=== PATIENT | female | born 1990 | race Caucasian/White ===

== ENCOUNTER 2017-09-23 01:13 | Inpatient (IN) | payer OTHER ==
[2017-09-23] VITALS (34 sets, daily range): BP systolic 91–141; BP diastolic 25–90; PULSE 68–146; RESP 16–20; TEMP 97.8–98.3
[~2017-09-23] VITALS: Ht 149.9 cm; Wt 88.0 kg
[~2017-09-23 01:13] MED LIST: AMOX875T2 PO; OXYC1SOL5 PO
--- NOTE | 2017-09-23 01:52 | PD ---
HPI Chief Complaint Contractions Travel History International Travel<30 Days: No Contact w/Intl Traveler<30Days: No Known Affected Area: No History of Present Illness HPI 26-year-old 002, IUP at 39.5 care uncomplicated per patient report The patient presents complaining of the onset of painful contractions at 10 PM last night. She reports they have increased in intensity and frequency and are now every 3-5 minutes. There are no alleviating factors; however, the patient reports they are worse with standing and somewhat better at rest. She denies any vaginal bleeding or leaking fluid. She reports that she has had some mucus discharge. She reports good movement. She has no other obstetrical complaints today. Weeks Gestation: 39 Para: 2 : 3 History Past Medical History Medical History: Denies Significant Hx Obstetric History Obstetric History 002 2 Past Surgical History Narrative Surgical Finger surgery, cervical laceration repair after delivery Social History Alcohol Use: No Tobacco Use: No Substance Abuse: No Allergies-Medications (Allergen,Severity, Reaction): Coded Allergies: No Known Allergies (Unverified , 10/17/14) Home Meds Active Scripts Oxycodone W/ Acetaminophen (Oxycodone/Acetaminophen 5-325 mg/5Ml) 1 Tab Tab, 1 TAB PO Q6H Y for pain, #15 TAB 0 Refills Prov:Joe Gibbons DO 10/20/14 Amoxicillin & Pot Clavulanate (Amoxicillin/Potassium Cla) 875 Mg Tab, 875 MG PO Q12HR for dig bite hand infection for 10 Days, TAB Prov:Marium Linton 10/20/14 Review of Systems Except as stated in HPI: all other systems reviewed are Neg Physical Exam Narrative GENERAL: Well-nourished, well-developed patient. SKIN: Warm and dry. HEAD: Normocephalic and atraumatic. EYES: No scleral icterus. No injection or drainage. ENT: No nasal drainage noted. Mucous membranes pink. Airway patent. NECK: Supple, trachea midline. No JVD. CARDIOVASCULAR: Regular rate and rhythm without murmurs, gallops, or rubs. RESPIRATORY: Breath sounds equal bilaterally. No accessory muscle use. BREASTS: Deferred ABDOMEN/GI: Abdomen soft, non-tender, bowel sounds present, no rebound, no guarding Gravid GENITOURINARY: External Genitalia: intact and normal in appearance. Normal BUS. Physiologic discharge. Grossly normal rugated. No cervical or vaginal masses. SVE 3/60/-2 by RN. SVE changed to 4/80/-1 with bulging bag of water FHT's: heart tones are in the 120s with moderate long-term variability, good accelerations. This category 1 heart rate tracing reactive NST EXTREMITIES: No cyanosis or edema. BACK: Nontender without obvious deformity. NEUROLOGICAL/musculoskeletal: Awake and alert. Motor and sensory grossly within normal limits. Grossly normal muscle strength in all muscle groups. Normal speech. Mostly normal gait and range of motion. Psychiatric: Grossly normal memory and affect MDM Plan Assessment/plan: 1. IUP at 39.5 2. Labor: patient presented with contractions at term and has made cervical change from 3/60 to 4/80 and now with a bulging bag of water. Will admit to Dr. Jane. Orders placed for labor and delivery admission. Discussed in brief the risks of vaginal delivery as well as the risks and indications of a delivery. Expectant management for now. 3. well-being: Reassuring testing with reactive NST and category 1 heart rate tracing 4. GBS negative Denise Bravo MD Sep 23, 2017 01:52
[2017-09-23] MEDS ORDERED: LACTATED RINGER'S 1000 ML INJ 1,000 ML IV SCH (02:37)
[2017-09-23] MEDS ORDERED: LACTATED RINGER'S 1000 ML INJ 1,000 ML IV PRN (02:37)
[2017-09-23] MEDS ORDERED: CITRIC ACID-SODIUM CITRATE LIQ 30 ML UDC PO SCH (02:45)
[2017-09-23] MEDS ORDERED: SODIUM CHLORID 0.9% 500 ML INJ 500 ML IV PRN (02:45)
[2017-09-23] MEDS ORDERED: LIDOCAINE HCL 1% 50 ML VIAL INFIL PRN (02:45)
[2017-09-23] MEDS ORDERED: LIDOCAINE HCL 1% 50 ML VIAL I-DERMAL PRN (02:45)
[2017-09-23] MEDS ORDERED: MINERAL OIL 10 ML VIAL TOPICAL PRN (02:45)
[2017-09-23] MEDS ORDERED: OXYTOCIN 30 UNITS-500ML PREMIX 500 ML IV ONE ×2 (02:45→07:00)
[2017-09-23] MEDS ORDERED: ONDANSETRON ODT 4 MG TAB PO PRN ×2 (02:45→07:00)
[2017-09-23] MEDS ORDERED: PRENTAB7 PO (02:49)
[2017-09-23] MEDS ORDERED: SODIUM CHLOR 0.9% 1000 ML INJ 1,000 ML IV PRN (02:57)
[2017-09-23 03:28] LABS: AUTOMATED NEUTROPHIL # 15.3 TH/MM3 (1.8-7.7); BASOPHIL # 0.1 TH/MM3 (0-0.2); BASOPHIL % 0.3 % (0.0-2.0); EOSINOPHIL # 0.2 TH/MM3 (0-0.4); EOSINOPHIL % 0.9 % (0.0-4.0); HEMATOCRIT 34.3 % (35.0-46.0); HEMOGLOBIN 11.7 GM/DL (11.6-15.3); LYMPH % 16.1 % (9.0-44.0); LYMPHOCYTE # 3.3 TH/MM3 (1.0-4.8); MEAN CELL VOLUME 85.9 FL (80.0-100.0); MEAN CORPUSCULAR HEMOGLOBIN 29.3 PG (27.0-34.0); MEAN CORPUSCULAR HGB CONC 34.1 % (32.0-36.0); MEAN PLATELET VOLUME 7.8 FL (7.0-11.0); MONO % 6.8 % (0.0-8.0); MONOCYTE # 1.4 TH/MM3 (0-0.9); NEUT % 75.9 % (16.0-70.0); PLATELET COUNT 307 TH/MM3 (150-450); RED BLOOD COUNT 3.99 MIL/MM3 (4.00-5.30); RED CELL DISTRIBUTION WIDTH 13.6 % (11.6-17.2); WHITE BLOOD COUNT 20.2 TH/MM3 (4.0-11.0)
[2017-09-23 03:37] LABS: BACTERIA, URINE RARE /hpf; BILIRUBIN, URINE NEG (NEG); BLOOD, URINE MOD (NEG); GLUCOSE,URINE NEG (NEG); KETONE, URINE NEG (NEG); NITRITE,URINE NEG (NEG); PH, URINE 6.5 (5.0-8.5); SQUAMOUS EPITHELIAL CELL URINE 1 /hpf (0-5); URINE COLOR LIGHT-YELLOW (YELLW/STRAW); URINE LEUKOCYTE ESTERASE TRACE (NEG)
[2017-09-23] MEDS ORDERED: fentaNYL 2MCG-BUPIV 0.125% INJ 150 ML EPIDURAL ONE (04:41)
[2017-09-23] MEDS ORDERED: ePHEDrine/NS 25 MG/5 ML SYRINGE ONE (04:41)
[2017-09-23] MEDS ORDERED: LIDOCAINE 1.5%/EPINEPHrine 1:200,000 PF 5 ML AMP ONE (04:52)
[2017-09-23] MEDS ORDERED: DO NOT ADMINISTER ANTICOAGULANTS PRN (05:15)
[2017-09-23] MEDS ORDERED: NO SYSTEM NARCOTICS PRN (05:15)
[2017-09-23] MEDS ORDERED: fentaNYL 2MCG-BUPIV 0.125% 150 ML EPIDURAL PRN (05:45)
[2017-09-23] MEDS ORDERED: ePHEDrine/NS 25 MG/5 ML SYRINGE IV PUSH PRN (05:45)
[2017-09-23] MEDS ORDERED: LIDOCAINE HCL 1% PF 30 ML VIAL ONE (06:00)
--- NOTE | 2017-09-23 06:46 | PD.OB.DELI ---
Weeks gestation: 39 Gest age assessed date: Sep 23, 2017 Pt started active labor?: Yes Active labor start date: Sep 22, 2017 Active labor start time: 11:00 Medical induction of labor?: No Artificial rupture of membrane: No Anesthesia: Epidural Episiotomy: None Vaginal Delivery: Normal Presentation: Occiput anterior Nuchal Cord: None Delayed cord clamping (45 sec): Yes : Male Delivery date: Sep 23, 2017 Delivery time: 06:24 One Minute : 9 Five Minute : 9 Weight: 6/13 Placenta: Spontaneous delivery, Intact, 3 vessel cord Laceration: No lacerations Estimated blood loss: 300 Additional Information Beautiful delivery of Fernando (after baby daddy) Both grandmas present Zach Mason MD Sep 23, 2017 06:46
[2017-09-23] MEDS ORDERED: ALUMINUM/MAGNESIUM/SIMETH 30 ML CUP PO PRN (07:00)
[2017-09-23] MEDS ORDERED: ACETAMINOPHEN 325 MG TAB PO PRN (07:00)
[2017-09-23] MEDS ORDERED: oxyCODONE/ACETAMINOPHEN 5 MG/325 MG TAB PO PRN (07:00)
[2017-09-23] MEDS ORDERED: BENZOCAINE 20% TOPICAL SPRAY 60 ML CAN TOPICAL PRN (07:00)
[2017-09-23] MEDS ORDERED: WITCH HAZEL 50%/GLYCERIN 12.5% 40 PAD JAR TOPICAL PRN (07:00)
[2017-09-23] MEDS ORDERED: SODIUM CHLORIDE 0.9% FLUSH 10 ML FLUSH IV FLUSH PRN (07:00)
[2017-09-23] MEDS ORDERED: DOCUSATE SODIUM 50 MG/SENNA 8.6 MG TAB PO PRN (07:00)
[2017-09-23] MEDS ORDERED: OXYTOCIN 30 UNITS-500ML PREMIX 500 ML IV SCH (07:00)
[2017-09-23] MEDS ORDERED: SODIUM CHLORIDE 0.9% FLUSH 10 ML FLUSH IV FLUSH SCH (09:00)
[2017-09-23] MEDS ORDERED: MULTIVIT/MIN/PREN/FOL AC/IRON PRENATAL TAB PO SCH (09:00)
[2017-09-23] MEDS ORDERED: MEASLES, MUMPS, RUBELLA VACCINE 0.5 ML VIAL SQ ONE (16:00)
[2017-09-23] MEDS ORDERED: DIPHTH/TETANUS/ACEL PERTUSSIS (BOOSTER) 0.5 ML VIAL/PFS IM ONE (16:00)
[2017-09-23] MEDS: IBUPROFEN 800 MG TAB PO PRN ×2 (16:08→23:52)
[2017-09-23] MEDS ORDERED: ZOLPIDEM TARTRATE 5 MG TAB PO PRN (21:00)
--- NOTE | 2017-09-24 09:02 | HHI.OB ---
Subjective Post Day: 1 Objective Vitals/I&O Vital Signs Date Time Temp Pulse Resp B/P (MAP) Pulse Ox O2 Delivery O2 Flow Rate FiO2 09/23/17 20:43 98.3 77 17 121/84 (96) Objective Remarks GENERAL: Well-nourished, well-developed patient. CARDIOVASCULAR: Regular rate and rhythm without murmurs, gallops, or rubs. RESPIRATORY: Breath sounds equal bilaterally. No accessory muscle use. ABDOMEN/GI: Abdomen soft, non-tender. Fundus: Firm, non-tender at umbilicus. GENITOURINARY: Light to moderate bleeding. EXTREMITIES: No cyanosis or edema, non-tender, without signs of DVT. Medications and IVs Current Medications Medications (Trade) Dose Ordered Sig/Isiah Route Start Time Stop Time Status Last Admin (NS Flush) 2 ml BID IV FLUSH 09/23/17 09:00 (NS Flush) 2 ml UNSCH PRN IV FLUSH 09/23/17 07:00 (Tylenol) 650 mg Q4H PRN PO 09/23/17 07:00 (Motrin) 800 mg Q8H PRN PO 09/23/17 07:00 09/23/17 23:52 (Percocet 5-325 Mg) 1 tab Q4H PRN PO 09/23/17 07:00 (Americaine 20% Top Spr) 1 spray Q4H PRN TOPICAL 09/23/17 07:00 (Tucks Pads) 1 applic QID PRN TOPICAL 09/23/17 07:00 (Salima-Colace) 2 tab Q12H PRN PO 09/23/17 07:00 (Ambien) 5 mg HS PRN PO 09/23/17 21:00 (Mag-Al Plus Susp Liq) 15 ml Q8H PRN PO 09/23/17 07:00 (Zofran Odt) 4 mg Q6H PRN PO 09/23/17 07:00 (Stuartnatal Plus 3 ) 1 tab DAILY PO 09/23/17 09:00 Assessment/Plan Problem List: (1) Vaginal delivery ICD Codes: O80 - Vaginal delivery Status: Acute Assessment and Plan pt doing well, ready to go home pain well managed with oral pain medication pt bonding with infant routine care Discharge Planning dc home today Jolynn Garcia Sep 24, 2017 09:02
--- NOTE | 2017-09-24 09:05 | HHI.DS ---
Admission Date Sep 23, 2017 at 02:34 Discharge Date: Sep 24, 2017 Admitting Diagnosis term labor Diagnosis: (1) Vaginal delivery ICD Codes: O80 - Vaginal delivery Status: Acute Delivery Date: Sep 23, 2017 Vaginal Delivery: Normal Infant: Male Brief History 26-year-old 002, IUP at 39.5 care uncomplicated per patient report The patient presents complaining of the onset of painful contractions at 10 PM last night. She reports they have increased in intensity and frequency and are now every 3-5 minutes. There are no alleviating factors; however, the patient reports they are worse with standing and somewhat better at rest. She denies any vaginal bleeding or leaking fluid. She reports that she has had some mucus discharge. She reports good movement. She has no other obstetrical complaints today. Hospital Course routine care Pt Condition on Discharge: Good Discharge Disposition: Discharge Home Discharge Instructions Diet Instructions: As Tolerated, No Restrictions Additional Diet Instructions: Drink at least 8 - 16 oz bottles of water a day Activities You Can Perform: Shower Only-No Bath, Sitz Bath Activities to Avoid: Lifting/Bending, Sexual Activity Additional Activity Instruc.: No driving until off pain medications Do not lift anything heavier than your baby in an infant carrier Follow up Referrals: [facility] - 2 Weeks @ [facility] Jolynn Garcia Sep 24, 2017 09:05
--- NOTE | 2017-09-24 09:06 | HHI.DCPOC ---
Discharge Care Plan Diagnosis: (1) Vaginal delivery Your Health Problems Are: Vaginal delivery Report Symptoms to Your Doctor -Temperature above 100.5 degrees -Redness, of incision or excessive or foul smelling drainage -Unusual pain or calf pain -Increased vaginal bleeding -Painful or difficulty urinating -Feelings of extreme sadness or anxiety after 2 weeks Goals to Promote Your Health * To prevent worsening of your condition and complications * To maintain your health at the optimal level Directions to Meet Your Goals Take your medications as prescribed Follow your dietary instruction Follow activity as directed Ensure plenty of rest for recovery Drink fluids for hydration Keep your appointments as scheduled Take your immunizations and boosters as scheduled If your symptoms worsen call your PCP, if no PCP go to Urgent Care Center or Emergency Room Smoking is Dangerous to Your Health. Avoid second hand smoke Call the 24-hour crisis hotline for domestic abuse at Jolynn Garcia Sep 24, 2017 09:05
[2017-09-24] MEDS ORDERED: IBUP1TAB7 PO (09:07)
[2017-09-24 17:37] VITALS: BP 119/87; PULSE 82; TEMP 98.1
== END 2017-09-24 17:45 | disposition home or self-care (01) | DRG 775 ==
LOC: HOBED 01:13 → H2EB 02:34 → H1EA 08:50
PROVIDERS: ADMIT Obstetrics & Gynecology; ATTEND Obstetrics & Gynecology
PROC: 10E0XZZ Delivery of Products of Conception, External Approach (ICD-10-PCS; principal; 2017-09-23)
PROC: 3E0R3BZ Introduction of Anesthetic Agent into Spinal Canal, Percutaneous Approach (ICD-10-PCS; 2017-09-23)
PROC: 00HU33Z Insertion of Infusion Device into Spinal Canal, Percutaneous Approach (ICD-10-PCS; 2017-09-23)
PROC: 3E0234Z Introduction of Serum, Toxoid and Vaccine into Muscle, Percutaneous Approach (ICD-10-PCS; 2017-09-23)
DX: O80 Encounter for full-term uncomplicated delivery (principal); Z37.0 Single live birth; Z3A.39 39 weeks gestation of pregnancy
CPT/HCPCS: 80307; 81001; 85025; 85461; 86850; 86900; 86901; 90384; J2790; J7120